=== PATIENT | female | born 1940 | race Caucasian/White ===

== ENCOUNTER 2019-03-25 10:46 | Outpatient (CLI) | payer MEDICARE, BC ==
--- NOTE | 2019-03-25 11:40 | ULT ---
RIGHT UPPER QUADRANT ULTRASOUND: Date: 03/25/19 CLINICAL HISTORY: Pain. FINDINGS: No focal hepatic lesion or acute gallbladder pathology. The common duct is normal, measuring 4-5 mm. Ha's reported as negative by back tender paper machine. IMPRESSION: No acute abnormality of the right upper quadrant is identified. POS: [facility]
== END 2019-03-25 10:47 | disposition home or self-care (01) ==
LOC: SCSULT 10:46
PROVIDERS: ATTEND Family Medicine
DX: R10.11 Right upper quadrant pain (principal)
CPT/HCPCS: 76705